=== PATIENT | male | born 1965 | race Caucasian/White ===

== ENCOUNTER 2020-09-02 08:14 | Outpatient (CLI) | payer BC, SELFPAY | END 2020-09-02 08:15 | disposition home or self-care (01) | LOC: ANHCOVIDVC 08:14 | PROVIDERS: PCP Family Medicine | DX: Z23 Encounter for immunization (principal) | CPT/HCPCS: 0001A; 91300 ==

== ENCOUNTER 2020-09-23 08:15 | Outpatient (CLI) | payer BC, SELFPAY | END 2020-09-23 08:16 | LOC: ANHCOVIDVC 08:15 | PROVIDERS: PCP Family Medicine | DX: Z23 Encounter for immunization (principal) | CPT/HCPCS: 0002A; 91300 ==

== ENCOUNTER 2021-02-10 06:39 | Outpatient (CLI) | payer BC, SELFPAY ==
--- NOTE | ~2021-02-10 | MR_ITS ---
EXAMINATION: MR shoulder LT wo con DATE: 02/10/2021 07:38 INDICATION: Chronic left shoulder pain and limited range of motion TECHNIQUE: Magnetic resonance imaging (MRI) of the left shoulder was performed without intravenous co ntrast. Sequences included axial PD-weighted FS FSE, coronal oblique PD-weighted FS FSE, coronal obli que T2-weighted FS FSE, sagittal PD-weighted FS FSE, and sagittal T1-weighted SE. COMPARISON: None. FINDINGS: Coracoacromial arch: The acromion undersurface is curved in morphology (type II). The coracoacromial ligament is normal. M ild acromioclavicular osteoarthritis. Rotator cuff: Mild supraspinatus and infraspinatus tendinopathy without discrete tear. The subscapularis and teres minor tendons are normal. Normal rotator cuff muscle bulk and signal. Biceps tendon, glenoid labrum and glenohumeral cartilage: Long head of the biceps tendon is normal. There is a tear at the base of the 1:00-9:00 position of th e superior to posterior glenoid labrum. The tear extends to involve the superior glenohumeral ligamen t which appears torn at the rotator cuff interval. There is also partial thickness chondral ulceratio n at the posterosuperior glenoid labrum and small focus of subarticular edema at the 11:00 position o f the rim of the glenoid. Additional deep chondral ulceration at the medial aspect of the humeral hea d and along the anteroapical aspect of the humeral head, the latter with mild underlying cortical irr egularity and minimal subarticular edema. Small marginal osteophytes about the humeral head. There is additional more amorphous degeneration of the anteroinferior glenoid labrum. Fluid: Physiologic amount of fluid in the glenohumeral joint and biceps tendon sheath. No loose osteochondra l bodies. No abnormally increased fluid signal in the subacromial/subdeltoid bursa to suggest bursiti s. Bones: Normal marrow signal with no fracture or pathologic marrow replacing process. Mild cystic change at t he greater tuberosity. IMPRESSION: 1. Tear of the superior to posterior glenoid labrum with more amorphous degeneration of the anteroinf erior labrum. 2. Mild glenohumeral osteoarthritis with small regions of high-grade chondromalacia at the humeral he ad and glenoid. 3. Tear of the superior glenohumeral ligament. 4. Mild supraspinatus and infraspinatus tendinopathy without discrete tear. 5. Mild acromioclavicular osteoarthritis. Reviewed, dictated and finalized at location D. IMPRESSION: 1. Tear of the superior to posterior glenoid labrum with more amorphous degener ation of the anteroinferior labrum. 2. Mild glenohumeral osteoarthritis with small regions of high-grade chondromal acia at the humeral head and glenoid. 3. Tear of the superior glenohumeral ligament. 4. Mild supraspinatus and infraspinatus tendinopathy without discrete tear. 5. Mild acromioclavicular osteoarthritis.
== END 2021-02-10 06:40 | disposition home or self-care (01) ==
PROVIDERS: PCP Family Medicine; Visit Provider Family Medicine
DX: M19.012 Primary osteoarthritis, left shoulder (principal); S43.432A Superior glenoid labrum lesion of left shoulder, initial encounter; M75.102 Unspecified rotator cuff tear or rupture of left shoulder, not specified as traumatic
CPT/HCPCS: 73221

== ENCOUNTER 2021-06-05 01:01 | Day surgery (SDC) | payer BC, SELFPAY ==
[2021-05-26 13:56] VITALS: BMI 28.0
[2021-06-05 10:27] VITALS: BP 150/93; PULSE 66; RESP 16; TEMP 36.6; O2SAT 97; BMI 28.3
[2021-06-05] MEDS: LACTATED RINGERS 1,000 ML 150 ML IV CONT (10:35)
--- NOTE | 2021-06-05 10:43 | WPDANESEPPF ---
Anes - Initial Pre Proc Eval Procedure: Operation Date: 06/05/21 11:30 Proposed Procedures p Esophagogastroduodenoscopy - Yuriy Hunter MD Date/Time: 06/05/21 10:43 Surgeon: Yuriy Hunter MD Pre Op Diagnosis: dysphagia Patient Data Age: 56 Gender: M Height: 1.88 m Weight: 100.3 kg Last Vital Signs Temp 36.6 C 06/05/21 10:27 Pulse 66 06/05/21 10:27 Resp 16 06/05/21 10:27 BP 150/93 H 06/05/21 10:27 Pulse Ox 97 06/05/21 10:27 Allergies Allergy/AdvReac Type Severity Reaction Status Date / Time Sulfa (Sulfonamide Allergy Unknown Other Verified 06/05/21 10:26 Antibiotics) Home Medications Medication Instructions Recorded Confirmed Type lovastatin 20 mg tablet See Rx Instructions .ROUTE 07/28/20 06/05/21 Rx .COMPLEX #90 tablet testosterone 20.25 mg/1.25 gram 2 pump TOPICAL QAM #225 g 04/20/21 06/05/21 Rx (1.62 %) transdermal gel pump Patient hx anesthesia problems: none Family hx anesthesia problems: none Results Review: All pre-operative results and documents have been reviewed as part of the pre-operative evaluation. 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: hemochromatosis Sigmoid polyp Testicular cancer Surgical History Surgical History S/P ACL reconstruction Family History Family History Father Family history of elevated blood lipids Social History Social History Smoking status: Never smoker Alcohol intake: never Substance use type: does not use Living arrangements: with family Spiritual care concerns: No Anes - Eval Final PreProcedure Day of Procedure 06/05/21 10:43 Patient weight: overweight Heart: regular rate and rhythm Lungs: clear to auscultation Airway: Mallampati scale class II Neurological: alert and oriented Last oral intake: >/= 8 hours ASA classification: II Emergent: no Anesthetic plan: proceed Anesthesia type and monitoring: general GIVS and standard monitoring Results Review: All pre-operative results and documents have been reviewed as part of the pre-operative evaluation. Informed Consent: The patient's anesthetic plan and its attendant risks and benefits were discussed with the patient/family/POA. Questions were solicited and answers provided to the satisfaction of the patient/family/POA.
--- NOTE | 2021-06-05 11:14 | P.CONGI_ITS ---
Assessment and Plan Assessment and plan (1) Dysphagia: Code(s): R13.10 - Dysphagia, unspecified Status: Acute Assessment and Plan: patient complains of slow passage of food through the esophagus and chest. Pl an is for EGD to exclude narrowing of the esophagus. Further recommendations will be given after endoscopy. GI Consult Note Consult date/time: 06/05/21 11:14 HPI: Anthony Roque is a 56 year old male Presents for EGD. Patient a complains of difficulty swallowing for several years. He states that food such as rice and bread will passed slowly through the chest. He denies any heartburn. He denies any aspiration. He has had no bleeding. He denies weight loss. He presents today for EGD to assess for possible esophageal narrowing. Patient's family history is noncontributory. Patient has a history of a benign colon polyp removed from the colon in 2017. Consider follow-up colonoscopy at 5 year intervals in the future Review of Systems Review of Systems: All systems reviewed & are unremarkable except as noted in HPI and below PMFSH Past Medical History Medical History Carrier of hemochromatosis HFE gene mutation FH: hemochromatosis Sigmoid polyp Testicular cancer Surgical History Surgical History S/P ACL reconstruction Family History Family History Father Family history of elevated blood lipids Social History Social History Smoking status: Never smoker Alcohol intake: never Substance use type: does not use Living arrangements: with family Spiritual care concerns: No Meds Home Medications and Allergies Home Medications Medication Instructions Recorded Confirmed Type lovastatin 20 mg tablet See Rx Instructions .ROUTE 07/28/20 06/05/21 Rx .COMPLEX #90 tablet testosterone 20.25 mg/1.25 gram 2 pump TOPICAL QAM #225 g 04/20/21 06/05/21 Rx (1.62 %) transdermal gel pump Allergies Allergy/AdvReac Type Severity Reaction Status Date / Time Sulfa (Sulfonamide Allergy Unknown Other Verified 06/05/21 10:26 Antibiotics) Vital Signs Vital Signs - 24 hr 06/05/21 10:27 Temperature 98 F Pulse Rate 66 Respiratory Rate 16 Blood Pressure 150/93 H Pulse Oximetry 97 Exam Narrative: Physical exam reveals patient be alert. Vital signs stable. HEENT exam is unremarkable. Patient is anicteric. Lungs are clear to auscultation and percussion. Heart is without murmur or extra sounds. Abdominal exam bowel sounds are present soft nontender with no organomegaly. Digital external rectal exam is normal.
[2021-06-05 12:23] VITALS: BP 134/70; PULSE 74; RESP 13; O2SAT 96
[2021-06-05 12:33] VITALS: BP 117/79; PULSE 68; RESP 15; O2SAT 96
[2021-06-05 12:43] VITALS: BP 134/78; PULSE 70; RESP 18; O2SAT 98
== END 2021-06-05 12:49 | disposition home or self-care (01) ==
PROVIDERS: PCP Family Medicine; Visit Provider Internal Medicine Gastroenterology
PROC: 0DJ08ZZ Inspection of Upper Intestinal Tract, Via Natural or Artificial Opening Endoscopic (ICD-10-PCS; CPT 43235; principal; 2021-06-05 11:30)
DX: R13.19 Other dysphagia (principal); K22.2 Esophageal obstruction; K21.00 Gastro-esophageal reflux disease with esophagitis, without bleeding; E83.119 Hemochromatosis, unspecified
CPT/HCPCS: 43450; J2704; J7120

== ENCOUNTER 2022-04-05 00:46 | Day surgery (SDC) | payer BC, SELFPAY ==
[2022-03-23 15:06] VITALS: BMI 28.3
[2022-04-05 10:32] VITALS: BP 129/90; PULSE 78; RESP 18; TEMP 36.2; O2SAT 98
--- NOTE | 2022-04-05 10:32 | WPDANESEPPF ---
Anes - Initial Pre Proc Eval Procedure: Operation Date: 04/05/22 11:30 Proposed Procedures p Screening Colonoscopy - Yuriy Hunter MD Date/Time: 04/05/22 10:32 Surgeon: Yuriy Hunter MD Pre Op Diagnosis: neoplasm screening & hx of colon polyps Patient Data Age: 57 Gender: M Height: 1.88 m Weight: 100 kg Allergies Allergy/AdvReac Type Severity Reaction Status Date / Time Sulfa (Sulfonamide Allergy Intermediate Swelling Verified 04/05/22 10:31 Antibiotics) Home Medications Medication Instructions Recorded Confirmed Type omeprazole 20 mg capsule,delayed 20 mg PO DAILY #90 caps 06/15/21 03/23/22 Rx release testosterone 20.25 mg/1.25 gram 2 pump topical QAM #225 grams 10/02/21 03/23/22 Rx (1.62 %) transdermal gel pump lovastatin 20 mg tablet 20 mg PO DAILY 03/23/22 03/23/22 History Patient hx anesthesia problems: none Family hx anesthesia problems: none Results Review: All pre-operative results and documents have been reviewed as part of the pre-operative evaluation. [facility] Past Medical History Medical History (Updated 04/05/22 @ 10:45 by Panchito Winter DO) Carrier of hemochromatosis HFE gene mutation FH: hemochromatosis GERD (gastroesophageal reflux disease) Mixed hyperlipidemia Sigmoid polyp Testicular cancer Surgical History Surgical History (Updated 09/23/21 @ 17:26 by Anthony Blevins MD) S/P ACL reconstruction S/P dilatation of esophageal stricture Family History Family History Father Family history of elevated blood lipids Social History Social History Smoking status: Never smoker Alcohol intake: never Substance use: never Substance use type: does not use Living arrangements: with family Spiritual care concerns: No Anes - Eval Final PreProcedure Day of Procedure 04/05/22 10:32 Patient weight: overweight Heart: regular rate and rhythm Lungs: clear to auscultation Airway: Mallampati scale class II Neurological: alert and oriented Last oral intake: >/= 8 hours ASA classification: II Emergent: no Anesthetic plan: proceed Anesthesia type and monitoring: general GIVS and standard monitoring Results Review: All pre-operative results and documents have been reviewed as part of the pre-operative evaluation. Informed Consent: The patient's anesthetic plan and its attendant risks and benefits were discussed with the patient/family/POA. Questions were solicited and answers provided to the satisfaction of the patient/family/POA.
[2022-04-05] MEDS: LACTATED RINGERS 1,000 ML 150 ML IV CONT (10:40)
--- NOTE | 2022-04-05 11:09 | P.HP_ITS ---
History of Present Illness History of Present Illness Consent: Risks, benefits, and alternatives have been discussed and questions answered. Patient agrees to proceed with procedure. Chief complaint: neoplasm screening & hx of colon polyps Narrative: Anthony Roque is a 57 year old male Presents for screening colonoscopy. Patient states that his current weight appetite and bowel movements are normal. Patient denies abdominal pain. He has had no bleeding. Family history noncontributory. Patient did have a benign hyperplastic colon polyp removed the colon 5 years ago. Patient presents today for neoplasia screening. Review of Systems Review of Systems: Review of systems noncontributory. [facility] Past Medical History Medical History (Updated 04/05/22 @ 11:10 by Yuriy Hunter MD) Carrier of hemochromatosis HFE gene mutation FH: hemochromatosis GERD (gastroesophageal reflux disease) Mixed hyperlipidemia Sigmoid polyp Testicular cancer Surgical History Surgical History (Updated 09/23/21 @ 17:26 by Anthony Blevins MD) S/P ACL reconstruction S/P dilatation of esophageal stricture Family History Family History Father Family history of elevated blood lipids Social History Social History Smoking status: Never smoker Alcohol intake: never Substance use: never Substance use type: does not use Living arrangements: with family Spiritual care concerns: No Meds Home Medications and Allergies Home Medications Medication Instructions Recorded Confirmed Type omeprazole 20 mg capsule,delayed 20 mg PO DAILY #90 caps 06/15/21 03/23/22 Rx release testosterone 20.25 mg/1.25 gram 2 pump topical QAM #225 grams 10/02/21 03/23/22 Rx (1.62 %) transdermal gel pump lovastatin 20 mg tablet 20 mg PO DAILY 03/23/22 03/23/22 History Allergies Allergy/AdvReac Type Severity Reaction Status Date / Time Sulfa (Sulfonamide Allergy Intermediate Swelling Verified 04/05/22 10:31 Antibiotics) Vital Signs Vital Signs - 24 hr 04/05/22 10:32 Temperature 97.1 F L Pulse Rate 78 Respiratory Rate 18 Blood Pressure 129/90 Pulse Oximetry 98 Oxygen Delivery Room Air Exam Narrative: Physical exam reveals patient to be alert. Vital signs stable. HEENT exam is unremarkable. Patient is anicteric. Lungs are clear to auscult ation and percussion. Heart is without murmur or extra sounds. Abdominal exam bowel sounds present soft nontender with no organomegaly. Digital external rectal exam is normal. Assessment and Plan Assessment and plan (1) Encounter for screening colonoscopy: Code(s): Z12.11 - Encounter for screening for malignant neoplasm of colon Status: Acute Assessment and Plan: Patient presents for screening colonoscopy. Patient appears be at average risk for colon polyps. (Previous history is for benign hyperplastic colon polyp typically not felt to be at risk of cancer.) Further recommendations will be given after colonoscopy.
[2022-04-05 11:35] VITALS: BP 126/87; PULSE 82; RESP 18; O2SAT 97
[2022-04-05 11:45] VITALS: BP 137/93; PULSE 71; RESP 22; O2SAT 98
[2022-04-05 11:55] VITALS: BP 138/90; PULSE 74; RESP 17; O2SAT 99
== END 2022-04-05 12:05 | disposition home or self-care (01) ==
PROVIDERS: PCP Family Medicine; Visit Provider Internal Medicine Gastroenterology
PROC: 0DJD8ZZ Inspection of Lower Intestinal Tract, Via Natural or Artificial Opening Endoscopic (ICD-10-PCS; CPT 45378; principal; 2022-04-05 11:30)
DX: Z12.11 Encounter for screening for malignant neoplasm of colon (principal); K64.8 Other hemorrhoids; K21.9 Gastro-esophageal reflux disease without esophagitis; E78.2 Mixed hyperlipidemia; Z85.47 Personal history of malignant neoplasm of testis
CPT/HCPCS: 45378; J2704; J7120